=== PATIENT | female | born 1945 | race Caucasian/White ===

== ENCOUNTER 2017-04-16 13:33 | Emergency (ER) | payer MEDICARE, OTHER ==
[~2017-04-16 13:33] MED LIST: AMLO5TAB22 PO; COZA100T PO; ECASA PO; EXCETAB PO; EXEM25TA PO; PEPC10CH PO
[2017-04-16 13:43] VITALS: BP 232/105; PULSE 84; RESP 14; TEMP 98.7; O2SAT 96
[2017-04-16] MEDS ORDERED: SODIUM CHLORIDE 0.9% FLUSH 5 ML FLUSH IV FLUSH PRN (13:45)
[2017-04-16 13:52] VITALS: O2SAT 95
--- NOTE | 2017-04-16 14:00 | PD ---
HPI . Unresponsive Chief Complaint: Altered Mental Status Time Seen by Provider: 13:42 Travel History International Travel<30 days: No Contact w/Intl Traveler<30days: No Traveled to known affect area: No History of Present Illness HPI This patient presents to us via [facility] unresponsive. No history is available from the patient. EMS reports that they were called to the scene because she was unresponsive. They state that the family then told them that she was napping. EMS further reports that the patient has presented as a "stroke alert " on 3 separate occasions and that she has never really had a stroke. There is apparently a a lot of turmoil in her home. PFSH Past Medical History Arthritis: Yes Asthma: No Autoimmune Disease: No Blood Disorders: No Heart Rhythm Problems: No Cancer: Yes (4 X CANCER) Cardiovascular Problems: Yes High Cholesterol: Yes Chemotherapy: Yes Chest Pain: No Congestive Heart Failure: No COPD: No Cerebrovascular Accident: No Diabetes: No Diminished Hearing: No Endocrine: No Gastrointestinal Disorders: Yes GERD: Yes Glaucoma: Yes (HAD SX 2006) Genitourinary: No Hepatitis: No Hiatal Hernia: No Hypertension: Yes Immune Disorder: No Implanted Vascular Access Dvce: Yes Kidney Stones: No Musculoskeletal: No Neurologic: No Psychiatric: No Reproductive: No Respiratory: No Radiation Therapy: Yes Renal Failure: No Sickle Cell Disease: No Sleep Apnea: No Thyroid Disease: No Ulcer: No Menopausal: Yes Tubal Ligation: Yes Past Surgical History Abdominal Surgery: Yes AICD: No Arteriovenous Shunt: No Body Medical Devices: INFUSAPORT Cardiac Surgery: No Ear Surgery: Yes Endocrine Surgery: No Eye Surgery: Yes Genitourinary Surgery: No Gynecologic Surgery: Yes Hysterectomy: Yes Insulin Pump: No Joint Replacement: Yes Mastectomy: Yes (RIGHT) Oral Surgery: Yes (DENTURES) Pacemaker: No Thoracic Surgery: Yes (L UPPER LOBECTOMY) Other Surgery: Yes (09/14 RIGHT MASTECTOMY) Social History Alcohol Use: No Tobacco Use: No Substance Use: No Allergies-Medications (Allergen,Severity, Reaction): Coded Allergies: Fire Ant (Verified Allergy, Severe, 04/16/17) Reported Meds & Prescriptions Reported Meds & Active Scripts Active Aspirin EC (Aspirin) 325 Mg Tab 325 Mg PO DAILY 30 Days Reported Excedrin Migraine (Oqdsikg-Szyntadtewopp-Xthecgns) Migraine Tab PO PRN Exemestane 25 Mg Tab 25 Mg PO HS Amlodipine Besylate 5 mg (Amlodipine Besylate) 5 Mg Tab 1 Tab PO HS Pepcid Ac (Famotidine) 10 Mg Chw 20 Mg PO HS Cozaar (Losartan Potassium) 100 Mg Tab 100 Mg PO HS Review of Systems ROS Limitations: Altered Mental Status Physical Exam Narrative GENERAL: Patient is lying on the stretcher with her eyes closed. Her lids are noted to flutter. SKIN: Warm and dry. HEAD: Atraumatic. Normocephalic. EYES: Pupils equal and round. ENT: No nasal bleeding or discharge. Mucous membranes pink and moist. NECK: Trachea midline. Neck is supple. CARDIOVASCULAR: Regular rate and rhythm. Heart sounds are normal. RESPIRATORY: No accessory muscle use. Lungs are clear. GASTROINTESTINAL: Abdomen soft, non-tender, nondistended. MUSCULOSKELETAL: No obvious deformities. No edema. NEUROLOGICAL: Patient withdraws to tickling her feet. When a hand is held above her face and go, she puts her arm down to the side. PSYCHIATRIC: Unable to evaluate Data Data Last Documented VS Vital Signs Date Time Temp Pulse Resp B/P Pulse Ox O2 Delivery O2 Flow Rate FiO2 04/16/17 13:52 95 Room Air 04/16/17 13:43 98.7 84 14 232/105 Orders Electrocardiogram (04/16/17 13:44) Ammonia (04/16/17 13:44) Complete Blood Count With Diff (04/16/17 13:44) Comprehensive Metabolic Panel (04/16/17 13:44) Creatine Kinase (Cpk) (04/16/17 13:44) Prothrombin Time / Inr (Pt) (04/16/17 13:44) Act Partial Throm Time (Ptt) (04/16/17 13:44) Troponin I (04/16/17 13:44) Thyroid Stimulating Hormone (04/16/17 13:44) Urinalysis - C+S If Indicated (04/16/17 13:44) Arterial Blood Gas (Abg) (04/16/17 13:44) Ct Brain W/O Iv Contrast(Rout) (04/16/17 13:44) Blood Glucose (04/16/17 13:44) Ecg Monitoring (04/16/17 13:44) Iv Access Insert/Monitor (04/16/17 13:44) Cath For Specimen (04/16/17 13:44) Oximetry (04/16/17 13:44) Sodium Chloride 0.9% Flush (Ns Flush) (04/16/17 13:45) Drug Screen, Random Urine (04/16/17 13:44) Alcohol (Ethanol) (04/16/17 13:44) Labs Laboratory Tests Test 04/16/17 04/16/17 14:15 14:30 White Blood Count 8.7 TH/MM3 Red Blood Count 4.33 MIL/MM3 Hemoglobin 12.6 GM/DL Hematocrit 39.2 % Mean Corpuscular Volume 90.6 FL Mean Corpuscular Hemoglobin 29.1 PG Mean Corpuscular Hemoglobin 32.2 % Concent Red Cell Distribution Width 12.7 % Platelet Count 250 TH/MM3 Mean Platelet Volume 9.8 FL Neutrophils (%) (Auto) 53.5 % Lymphocytes (%) (Auto) 37.3 % Monocytes (%) (Auto) 7.6 % Eosinophils (%) (Auto) 0.8 % Basophils (%) (Auto) 0.8 % Neutrophils # (Auto) 4.6 TH/MM3 Lymphocytes # (Auto) 3.2 TH/MM3 Monocytes # (Auto) 0.7 TH/MM3 Eosinophils # (Auto) 0.1 TH/MM3 Basophils # (Auto) 0.1 TH/MM3 CBC Comment DIFF FINAL Differential Comment Prothrombin Time 10.3 SEC Prothromb Time International 0.9 RATIO Ratio Activated Partial 28.0 SEC Thromboplast Time Urine Color LIGHT-YELLOW Urine Turbidity CLEAR Urine pH 6.0 Urine Specific [place] 1.013 Urine Protein TRACE mg/dL Urine Glucose (UA) NEG mg/dL Urine Ketones NEG mg/dL Urine Occult Blood NEG Urine Nitrite NEG Urine Bilirubin NEG Urine Urobilinogen LESS THAN 2.0 MG/DL Urine Leukocyte Esterase TRACE Urine RBC 1 /hpf Urine WBC LESS THAN 1 /hpf Urine Squamous Epithelial 1 /hpf Cells Urine Mucus FEW /lpf Microscopic Urinalysis Comment CATH-CULT NOT IND Sodium Level 142 MEQ/L Potassium Level 4.0 MEQ/L Chloride Level 108 MEQ/L Carbon Dioxide Level 27.8 MEQ/L Anion Gap 6 MEQ/L Blood Urea Nitrogen 17 MG/DL Creatinine 0.95 MG/DL Estimat Glomerular Filtration 58 ML/MIN Rate Random Glucose 94 MG/DL Calcium Level 9.3 MG/DL Total Bilirubin 0.3 MG/DL Aspartate Amino Transf 19 U/L (AST/SGOT) Alanine Aminotransferase 24 U/L (ALT/SGPT) Alkaline Phosphatase 114 U/L Ammonia 27 MCMOL/L Total Creatine Kinase 173 U/L Troponin I LESS THAN 0.02 NG/ML Total Protein 7.9 GM/DL Albumin 3.8 GM/DL Thyroid Stimulating Hormone 1.310 uIU/ML 3rd Gen Urine Opiates Screen NEG Urine Barbiturates Screen NEG Urine Amphetamines Screen NEG Urine Benzodiazepines Screen NEG Urine Cocaine Screen NEG Urine Cannabinoids Screen NEG Ethyl Alcohol Level LESS THAN 3 MG/DL Blood Gas Puncture Site RT RADIAL Blood Gas Patient Temperature 98.6 Blood Gas HCO3 25 mmol/L Blood Gas Base Excess 0.8 mmol/L Blood Gas Oxygen Saturation 93 % Arterial Blood pH 7.42 Arterial Blood Partial 39 mmHg Pressure CO2 Arterial Blood Partial 73 mmHG Pressure O2 Arterial Blood Oxygen Content 15.7 Vol % Arterial Blood 1.0 % Carboxyhemoglobin Arterial Blood Methemoglobin 1.0 % Blood Gas Hemoglobin 12.0 G/DL Oxygen Delivery Device RA Blood Gas Inspired Oxygen 21 % MDM Medical Decision Making Medical Screen Exam Complete: Yes Emergency Medical Condition: Yes Medical Record Reviewed: Yes (the patient has had at least 2 previous visits here with feined unresponsive behavior. 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 In July 2014, she was diagnosed with catatonia.) Differential Diagnosis Differential diagnosis of altered mental status includes but is not limited to infection, electrolyte abnormality, neurological event, intoxication Narrative Course This patient presents to us via [facility] for altered mental status. A full workup has been ordered. However, I suspect a psychiatric etiology for her symptoms. Head CT is negative for acute findings. The patient is now opening her eyes and looking around. CBC & BMP Diagram 04/16/17 14:15 Cardiac enzymes are negative. Ammonia level is normal. Liver function studies are normal. Toxicology screen is negative. Blood gases normal. The patient continues to lie in the bed with her eyes open but not saying anything. This patient is medically clear. We will continue to observe her for a period of time. Hopefully, she will start talking again soon. The nurse tells me that the patient has miraculously started talking and moving again. Her level of responsiveness improved immediately after I told the patient and her family that I have not found anything wrong with her. Diagnosis Primary Impression: Catatonia Patient Instructions: General Instructions Disposition: 01 DISCHARGE HOME Condition: Stable Debbi Davis MD Apr 16, 2017 14:00
--- NOTE | 2017-04-16 14:34 | RADRPT ---
EXAM DATE/TIME: 04/16/2017 14:06 [facility] COMPARISON: CT BRAIN W/O CONTRAST, June 07, 2016, 0:37. INDICATIONS : Altered mental status. RADIATION DOSE: 56.35 CTDIvol (mGy) MEDICAL HISTORY : Cardiovascular disease. Hypertension. Carcinoma, breast. SURGICAL HISTORY : Mastectomy, left. ENCOUNTER: Initial ACUITY: 1 day PAIN SCALE: Non-responsive LOCATION: Bilateral cranial TECHNIQUE: Multiple contiguous axial images were obtained of the head. Using automated exposure control and adj ustment of the mA and/or kV according to patient size, radiation dose was kept as low as reasonably a chievable to obtain optimal diagnostic quality images. DICOM format image data is available electro nically for review and comparison. FINDINGS: CEREBRUM: The ventricles are normal for age. No evidence of midline shift, mass lesion, hemorrhage or acute in farction. No extra-axial fluid collections are seen. POSTERIOR FOSSA: The cerebellum and brainstem are intact. The 4th ventricle is midline. The cerebellopontine angle i s unremarkable. EXTRACRANIAL: The visualized portion of the orbits is intact. SKULL: The calvaria is intact. No evidence of skull fracture. CONCLUSION: No acute intracranial disease. Mekhi De Santiago MD on April 16, 2017 at 14:29 Board Certified Radiologist. This report was verified electronically.
[2017-04-16 14:38] LABS: BLOOD GAS BASE EXCESS 0.8 mmol/L (-2-2); BLOOD GAS HCO3 25 mmol/L (22-26); BLOOD GAS O2 HGB SATURATION 93 % (90-100); BLOOD GAS OXYGEN CONTENT 15.7 Vol % (12.0-20.0); BLOOD GAS PCO2 39 mmHg (38-42); BLOOD GAS PO2 73 mmHG (61-120); TEMP CORR TO 98.6
[2017-04-16 14:39] LABS: CRITICAL VALUE NO; DRAW SITE RT RADIAL; FIO2 21 %; NUMBER OF ARTERIAL PUNCTURES 1; OXYGEN DEVICE RA; STAT YES; ULNAR PULSE Y
[2017-04-16 14:53] LABS: AUTOMATED NEUTROPHIL # 4.6 TH/MM3 (1.8-7.7); BASOPHIL # 0.1 TH/MM3 (0-0.2); BASOPHIL % 0.8 % (0.0-2.0); EOSINOPHIL # 0.1 TH/MM3 (0-0.4); EOSINOPHIL % 0.8 % (0.0-4.0); HEMATOCRIT 39.2 % (35.0-46.0); HEMO FLAGS DIFF FINAL; LYMPH % 37.3 % (9.0-44.0); LYMPHOCYTE # 3.2 TH/MM3 (1.0-4.8); MEAN CELL VOLUME 90.6 FL (80.0-100.0); MEAN CORPUSCULAR HEMOGLOBIN 29.1 PG (27.0-34.0); MEAN CORPUSCULAR HGB CONC 32.2 % (32.0-36.0); MONO % 7.6 % (0.0-8.0); NEUT % 53.5 % (16.0-70.0); PLATELET COUNT 250 TH/MM3 (150-450); RED BLOOD COUNT 4.33 MIL/MM3 (4.00-5.30); RED CELL DISTRIBUTION WIDTH 12.7 % (11.6-17.2); WHITE BLOOD COUNT 8.7 TH/MM3 (4.0-11.0)
[2017-04-16 14:58] LABS: INTERNATIONAL NORMALIZED RATIO 0.9 RATIO; PROTHROMBIN TIME - PATIENT 10.3 SEC (9.8-11.6)
[2017-04-16 15:03] LABS: ALT (GPT) 24 U/L (10-53); ANION GAP 6 MEQ/L (5-15); AST (GOT) 19 U/L (15-37); BICARBONATE 27.8 MEQ/L (21.0-32.0); BLOOD UREA NITROGEN 17 MG/DL (7-18); CHLORIDE 108 MEQ/L (98-107); GLOMERULAR FILTRATION RATE 58 ML/MIN (>89); SODIUM (NA) 142 MEQ/L (136-145)
[2017-04-16 15:08] LABS: AMPHETAMINE, URINE NEG (NEG); BARBITURATES, URINE NEG (NEG); COCAINE, URINE NEG (NEG)
[2017-04-16 15:13] LABS: ALKALINE PHOSPHATASE 114 U/L (45-117); CREATINE KINASE 173 U/L (26-192); TOTAL BILIRUBIN ADULT 0.3 MG/DL (0.2-1.0)
[2017-04-16 15:17] LABS: BLOOD, URINE NEG (NEG); GLUCOSE,URINE NEG (NEG); KETONE, URINE NEG (NEG); MUCUS URINE FEW /lpf (OCC); NITRITE,URINE NEG (NEG); SQUAMOUS EPITHELIAL CELL URINE 1 /hpf (0-5); URINE COLOR LIGHT-YELLOW (YELLW/STRAW)
[2017-04-16 15:19] LABS: COMMENT (UR) CATH-CULT NOT IND; CULTURE IF INDICATED CATH CULTURE NOT IND
[2017-04-16] MEDS ORDERED: EXEM25TA (15:59)
[2017-04-16] MEDS ORDERED: LOSA100T PO (15:59)
[2017-04-16] MEDS ORDERED: ATEN50TA PO (15:59)
[2017-04-16] MEDS ORDERED: FAMO1TAB37 PO (15:59)
[2017-04-16] MEDS ORDERED: ASPI325T PO (15:59)
[2017-04-16] MEDS ORDERED: CALCCAP (15:59)
--- NOTE | 2017-04-16 17:24 | EKG ---
Date Performed: 04/16/2017 Time Performed: 14:32:26 PTAGE: 71 years EKG: ECTOPIC ATRIAL RHYTHM POSSIBLE LIMB LEAD REVERSAL, AFFECTS INTERPRETATION ABNORMAL ECG PREVIOUS TRACING : 06/06/2016 23.17 Compared to the previous tracing, unable to compare due to probable limb lead reversal DOCTOR: Uriel Gómez Interpretating Date/Time 04/16/2017 17:22:27
== END 2017-04-16 17:39 | disposition home or self-care (01) ==
LOC: NEPE 13:33
DX: F20.2 Catatonic schizophrenia (principal); E78.00 Pure hypercholesterolemia, unspecified; K21.9 Gastro-esophageal reflux disease without esophagitis; I10 Essential (primary) hypertension
CPT/HCPCS: 36600; 70450; 80053; 80307; 81001; 82140; 82550; 82805; 84443; 84484; 85025; 85610; 85730; 93005; 99285; P9612

== ENCOUNTER 2017-08-18 12:45 | Emergency (ER) | payer MEDICARE, OTHER ==
[~2017-08-18] VITALS: Ht 157.5 cm; Wt 81.2 kg
[~2017-08-18 12:45] MED LIST changes: -AMLO5TAB22 PO; +ASPI-183 PO; +ATEN50TA PO; +CALCCAP; -COZA100T PO; -ECASA PO; -EXCETAB PO; +EXEM25TA; -EXEM25TA PO; +FAMO1TAB37 PO; +LOSA100T PO; -PEPC10CH PO
[2017-08-18 12:53] VITALS: BP 195/85; PULSE 72; RESP 16; TEMP 98; O2SAT 97
--- NOTE | 2017-08-18 13:06 | PD ---
HPI Chief Complaint: Musculoskeletal Complaint Time Seen by Provider: 13:00 Travel History International Travel<30 days: No Contact w/Intl Traveler<30days: No Traveled to known affect area: No History of Present Illness HPI 72-year-old female here for evaluation of left foot pain. Symptoms initially started 1.5 months ago but have gradually worsened which prompted evaluation. Pain is an aching pain that is localized left foot fifth metatarsal region, worse when walking, somewhat alleviated when not walking. She does not recall any trauma. She denies any increase in strenuous activity-she reports that she most Tc regular basis. She has been taking Aleve for the pain. No other complaints. PFSH Past Medical History Hx Anticoagulant Therapy: Yes (asa 325mg daily) Arthritis: Yes Asthma: No Autoimmune Disease: No Blood Disorders: No Heart Rhythm Problems: No Cancer: Yes (4 X CANCER) Cardiovascular Problems: Yes (htn on meds) High Cholesterol: Yes Chemotherapy: Yes Chest Pain: No Congestive Heart Failure: No COPD: No Cerebrovascular Accident: No Diabetes: No Diminished Hearing: No Endocrine: No Gastrointestinal Disorders: Yes GERD: Yes Glaucoma: Yes (HAD SX 2006) Genitourinary: No Hepatitis: No Hiatal Hernia: No Hypertension: Yes Immune Disorder: No Implanted Vascular Access Dvce: Yes Kidney Stones: No Musculoskeletal: No Neurologic: No Psychiatric: No Reproductive: No Respiratory: Yes (copd) Radiation Therapy: Yes Renal Failure: No Sickle Cell Disease: No Sleep Apnea: No Thyroid Disease: No Ulcer: No ?: Not Menopausal: Yes Tubal Ligation: Yes Past Surgical History Abdominal Surgery: Yes AICD: No Arteriovenous Shunt: No Body Medical Devices: INFUSAPORT Cardiac Surgery: No Ear Surgery: Yes Endocrine Surgery: No Eye Surgery: Yes Genitourinary Surgery: No Gynecologic Surgery: Yes Hysterectomy: Yes Insulin Pump: No Joint Replacement: Yes Mastectomy: Yes (RIGHT 2006 LEFT 2015) Oral Surgery: Yes (DENTURES) Pacemaker: No Thoracic Surgery: Yes (L UPPER LOBECTOMY) Other Surgery: Yes (09/14 RIGHT MASTECTOMY) Social History Alcohol Use: No Tobacco Use: No Substance Use: No Allergies-Medications (Allergen,Severity, Reaction): Coded Allergies: fire ant (Unverified Allergy, Severe, 08/18/17) Reported Meds & Prescriptions Reported Meds & Active Scripts Active Reported Calcium 600 + Vitamin D Sftgl (Calcium Carbonate/Vitamin D3) 1 Each Capsule Exemestane 25 Mg Tab Aspirin 325 Mg Tab 325 Mg PO DAILY Losartan (Losartan Potassium) 100 Mg Tab 100 Mg PO DAILY Atenolol 50 Mg Tab 50 Mg PO DAILY Pepcid (Famotidine) 20 Mg Tab 20 Mg PO HS Review of Systems Musculoskeletal: Positive: Pain Skin: Positive Other (denies open wounds) Physical Exam Narrative GENERAL: Well-nourished female in no acute distress SKIN: Warm and dry. CARDIOVASCULAR: Regular rate and rhythm. No murmur appreciated. RESPIRATORY: No accessory muscle use. Clear to auscultation. Breath sounds equal bilaterally. MUSCULOSKELETAL: No obvious deformities. Focal tenderness to palpation to the dorsal left foot overlying the fifth metatarsal. There is no tenderness to palpation to the plantar aspect of the left foot. The patient maintains full range of motion of the left foot and ankle with no weakness. Distal pulses are intact. NEUROLOGICAL: Awake and alert. No obvious cranial nerve deficits. Motor grossly within normal limits. Normal speech. Data Data Last Documented VS Vital Signs Date Time Temp Pulse Resp B/P (MAP) Pulse Ox O2 Delivery O2 Flow Rate FiO2 08/18/17 12:53 98.0 72 16 195/85 (121) 97 Orders Orders Foot, Complete ([id number]) (08/18/17 ) Ed Discharge Order (08/18/17 13:50) [facility] Medical Decision Making Medical Screen Exam Complete: Yes Emergency Medical Condition: Yes Medical Record Reviewed: Yes Differential Diagnosis Foot strain, tendinitis, stress fracture, contusion Narrative Course Physical examination reveals some tenderness to palpation of the left foot overlying the fifth metatarsal region with no obvious deformity. X-ray was performed revealing no acute abnormality's. Most likely this is a soft tissue strain of the foot. She has a walker at home. She is stable for discharge. Diagnosis Primary Impression: Strain of left foot Additional Instructions: Tylenol or Motrin for pain. Walker. Rest. Follow-up with primary care in 1 week. Return for any emergent medical conditions. Med/Other Pt SpecificInfo: No Change to Meds Disposition: 01 DISCHARGE HOME Condition: Stable Justin Paz Aug 18, 2017 13:06
--- NOTE | 2017-08-18 13:43 | RADRPT ---
EXAM DATE/TIME: 08/18/2017 13:11 [facility] COMPARISON: No previous studies available for comparison. INDICATIONS : Left foot pain; no known injury. MEDICAL HISTORY : None. SURGICAL HISTORY : None. ENCOUNTER: Initial ACUITY: 1 month PAIN SCORE: 6/10 LOCATION: Left foot. FINDINGS: Three view examination of the left foot demonstrates no soft tissue swelling, dislocation, or fractur e. The tarsal bones appear intact. The interphalangeal and metatarsophalangeal joints are intact. The calcaneus is intact. Bony mineralization is normal. CONCLUSION: No acute bony disease or evidence of significant arthropathy. Papito Lanza MD on August 18, 2017 at 13:40 Board Certified Radiologist. This report was verified electronically.
== END 2017-08-18 14:03 | disposition home or self-care (01) ==
LOC: PHEFT 12:45
DX: S96.912A Strain of unspecified muscle and tendon at ankle and foot level, left foot, initial encounter (principal); I10 Essential (primary) hypertension; E78.00 Pure hypercholesterolemia, unspecified; J44.9 Chronic obstructive pulmonary disease, unspecified; M19.90 Unspecified osteoarthritis, unspecified site; Z79.82 Long term (current) use of aspirin
CPT/HCPCS: 73630; 99283

== ENCOUNTER → 2018-01-16 | Outpatient (CLI) | payer MEDICARE, OTHER ==
[2018-01-16 10:44] LABS: HEMOGLOBIN 12.9 GM/DL (11.6-15.3); MEAN CELL VOLUME 89.3 FL (80.0-100.0); MEAN CORPUSCULAR HEMOGLOBIN 30.3 PG (27.0-34.0); MEAN CORPUSCULAR HGB CONC 33.9 % (32.0-36.0); MEAN PLATELET VOLUME 9.3 FL (7.0-11.0); PLATELET COUNT 321 TH/MM3 (150-450); RED BLOOD COUNT 4.25 MIL/MM3 (4.00-5.30); RED CELL DISTRIBUTION WIDTH 13.3 % (11.6-17.2); WHITE BLOOD COUNT 6.3 TH/MM3 (4.0-11.0)
[2018-01-16 10:59] LABS: ALBUMIN 3.8 GM/DL (3.4-5.0); AST (GOT) 26 U/L (15-37); BICARBONATE 24.7 MEQ/L (21.0-32.0); BLOOD UREA NITROGEN 19 MG/DL (7-18); CALCIUM 9.2 MG/DL (8.5-10.1); CHLORIDE 106 MEQ/L (98-107); CREATININE 1.07 MG/DL (0.50-1.00); GLOMERULAR FILTRATION RATE 51 ML/MIN (>89); GLUCOSE,FASTING 94 MG/DL (74-99); SODIUM (NA) 139 MEQ/L (136-145)
[2018-01-16 11:00] LABS: CHOLESTEROL 259 MG/DL (120-200)
[2018-01-16 11:05] LABS: ALKALINE PHOSPHATASE 127 U/L (45-117); ALT (GPT) 31 U/L (10-53); CHOLESTEROL/ HDL RATIO 6.19 RATIO; HDL CHOLESTEROL 41.8 MG/DL (40.0-60.0); LDL CHOLESTEROL 159 MG/DL (0-99); LDL CHOLESTEROL DIRECT 176 MG/DL (0-99); TOTAL BILIRUBIN ADULT 0.4 MG/DL (0.2-1.0); TRIGLYCERIDES 291 MG/DL (42-150)
== END ==
LOC: PLAB 06:53
PROVIDERS: ATTEND Internal Medicine
DX: R73.09 Other abnormal glucose (principal)
CPT/HCPCS: 36415; 80053; 80061; 83721; 85027